=== PATIENT | male | born 1990 | race Caucasian/White ===

== ENCOUNTER 2023-11-04 17:27 | Inpatient (IN) | payer SELFPAY ==
[~2023-11-04] VITALS: Ht 172.7 cm; Wt 70.3 kg
[~2023-11-04 17:27] MED LIST: Thiamine 100 MG TAB PO SCH
[2023-11-04 18:16] LABS: HEMATOCRIT 33.9 % (42.0-52.0); HEMOGLOBIN 12.5 g/dl (13.5-18.0); MEAN CELL VOLUME 90 fl (80.0-100.0); MEAN CORPUSCULAR HEMOGLOBIN 33 pg (27-31); MEAN CORPUSCULAR HGB CONC 37 g/dl (33.0-37.0); MEAN PLATELET VOLUME 10.1 fl (7.4-10.4); PLATELET COUNT 145 K/mm3 (130-400); RED BLOOD COUNT 3.78 M/mm3 (4.20-5.60); REDCELL DISTRIBUTION WIDTH-CV 19.4 % (11.5-14.5)
[2023-11-04] MEDS ORDERED: NS 1,000 ML IV ONE (18:30)
[2023-11-04 18:35] LABS: ALANINE AMINOTRANSFERASE 191 U/L (0-55); ALBUMIN 2.1 g/dL (3.5-5.0); ALKALINE PHOSPHATASE 674 U/L (40-150); ANION GAP 20 mmol/L (7-16); AST,SGOT 1158 U/L (5-34); CALCIUM 8.1 mg/dL (8.4-10.2); CHLORIDE 92 mEq/L (98-107); CREATININE, serum 0.59 mg/dL (0.72-1.25); GLUCOSE 112 mg/dL (70-99); LIPASE 92 U/L (8-78); POTASSIUM 3.1 mEq/L (3.5-4.5); SODIUM 137 mEq/L (136-145); TOTAL PROTEIN 6.5 g/dl (6.2-8.1)
[2023-11-04 18:39] LABS: BLOOD UREA NITROGEN < 5 mg/dL (9-21)
[2023-11-04 18:53] LABS: BILIRUBIN,TOTAL 25.4 mg/dL (0.2-1.2)
[2023-11-04 18:58] LABS: BAND 2 % (0-10); BASOPHIL 1 % (0-2); EOSINOPHIL 1 % (0-4); LYMPHOCYTE 28 % (20.0-51.0); NEUTROPHILS 57 % (42.0-75.2)
[2023-11-04 19:00] LABS: TARGET CELLS 1+
[2023-11-04 19:09] LABS: COLLECTION METHOD CLEAN CATCH
[2023-11-04] MEDS ORDERED: Iohexol 300 - 100 ML VIAL IV ONE (19:09)
[2023-11-04] MEDS ORDERED: NS 50 ML IV SCH (19:09)
[2023-11-04 19:13] LABS: URINE APPEARANCE CLEAR (CLEAR/HAZY); URINE BLOOD NEGATIVE (NEGATIVE); URINE COLOR Dark Yellow (YELLOW); URINE GLUCOSE NEGATIVE (NEGATIVE); URINE KETONE NEGATIVE (NEGATIVE); URINE NITRATE NEGATIVE (NEGATIVE); URINE PROTEIN(semi-quant) NEGATIVE (NEGATIVE); URINE UROBILINOGEN 0.2 E.U/dL (0.2-1.0)
[2023-11-04 19:25] LABS: TRICYCLIC ANTIDEPRESS URINE NEGATIVE (NEGATIVE)
[2023-11-04 21:19] LABS: INR 1.7 (0.8-3.0); PROTHROMBIN TIME 18.1 SECONDS (9.7-12.8)
[2023-11-04] MEDS ORDERED: LORazepam 1 MG TAB PO PRN (21:30)
[2023-11-04] MEDS ORDERED: LORazepam 2 MG/ML 1 ML VIAL IV PRN (21:30)
[2023-11-04] MEDS ORDERED: Ondansetron 4 MG/2 ML VIAL IV PRN (21:30)
[2023-11-04] MEDS ORDERED: Polyethylene Glycol 3350 17 GM PDS PO PRN (21:30)
[2023-11-04] MEDS ORDERED: Mag/Al Hydrox/Simeth Susp 30 ML CUP PO PRN (21:30)
[2023-11-04 22:00] VITALS: BP 134/92; PULSE 102; TEMP 98.1
[2023-11-04 22:49] VITALS: BP_SYST 134
--- NOTE | 2023-11-04 22:51 | NUR ---
Patient arrived from ED around 2200, alert and oriented x4. denies chest pain and shortness of breath, nausea and headache. reports feeling anxious, slight tremors seen with arms extended, pt skin and sclera jaundice, scattered bruising on extremities noted. IV in SUE is patent, site is clean dry and intact. seizure and fall precautions in place, call light within reach. pt has no further needs, questions, or concerns at this time. will continue to monitor.
[2023-11-04 23:38] VITALS: BP 122/73; PULSE 112; TEMP 98.1
[2023-11-04 23:51] VITALS: BP_SYST 122
[2023-11-05] VITALS (21 sets, daily range): BP systolic 106–149; BP diastolic 72–101; PULSE 101–133; TEMP 97.5–99.5
[2023-11-05] MEDS ORDERED: Potassium Bicarbonate/Citrate 20 MEQ Effervescent TAB PO SCH (00:45)
[2023-11-05] MEDS ORDERED: NS 1,000 ML IV ONE (01:30)
[2023-11-05] MEDS ORDERED: hydrOXYzine HCl 25 MG TAB PO PRN (01:45)
[2023-11-05 06:43] LABS: MEAN CELL VOLUME 88 fl (80.0-100.0); MEAN CORPUSCULAR HGB CONC 37 g/dl (33.0-37.0); MEAN PLATELET VOLUME 9.7 fl (7.4-10.4); PLATELET COUNT 112 K/mm3 (130-400); RED BLOOD COUNT 3.11 M/mm3 (4.20-5.60); REDCELL DISTRIBUTION WIDTH-CV 19.1 % (11.5-14.5)
--- NOTE | 2023-11-05 06:50 | NUR ---
awake resting in bed, bedside shift report received from ROSALINDA Miranda
[2023-11-05 07:09] LABS: HEMATOCRIT 27.3 % (42.0-52.0); HEMOGLOBIN 10.2 g/dl (13.5-18.0); MEAN CORPUSCULAR HEMOGLOBIN 33 pg (27-31)
--- NOTE | 2023-11-05 07:52 | NUR ---
full assessment completed, see interventions for further info, will order breakfast and then take am meds, denies other needs
[2023-11-05] MEDS ORDERED: Multivitamin TAB PO SCH (08:00)
[2023-11-05 08:05] LABS: ANISOCYTOSIS 1+; BAND 8 % (0-10); EOSINOPHIL 1 % (0-4); LYMPHOCYTE 22 % (20.0-51.0); METAMYELOCYTE 1 % (0-0); NEUTROPHILS 64 % (42.0-75.2); PLATELET ESTIMATE DECREASED (NORMAL); TARGET CELLS 1+
[2023-11-05 08:53] LABS: ALANINE AMINOTRANSFERASE 158 U/L (0-55); ALBUMIN 1.8 g/dL (3.5-5.0); ALKALINE PHOSPHATASE 542 U/L (40-150); ANION GAP 18 mmol/L (7-16); AST,SGOT 936 U/L (5-34); BILIRUBIN,TOTAL 21.4 mg/dL (0.2-1.2); CALCIUM 7.3 mg/dL (8.4-10.2); CHLORIDE 97 mEq/L (98-107); CREATININE, serum 0.55 mg/dL (0.72-1.25); GLUCOSE 138 mg/dL (70-99); POTASSIUM 3.3 mEq/L (3.5-4.5); SODIUM 137 mEq/L (136-145); TOTAL PROTEIN 5.5 g/dl (6.2-8.1)
[2023-11-05 08:54] LABS: BLOOD UREA NITROGEN < 5 mg/dL (9-21)
[2023-11-05] MEDS ORDERED: Folic Acid 1 MG TAB PO SCH (09:00)
[2023-11-05] MEDS ORDERED: Citalopram 20 MG TAB PO SCH (09:00)
[2023-11-05] MEDS ORDERED: diazePAM 10 MG TAB PO SCH ×2 (09:00→18:00)
--- NOTE | 2023-11-05 09:45 | NUR ---
resting in bed with lights off, has had breakfast and tolerated well, c/o shaking and requesting something to help with this, given scheduled valium and CIWA will be completed soon also, denies pain or nausea
--- NOTE | 2023-11-05 11:17 | NUR ---
Dr Mohamud and care team in to see patient, mother at bedsider, Dr Mohamud talked frankly with patient and his mother about his condition, Brianda with social media marketing manager also talking with patient
[2023-11-05] MEDS ORDERED: NS & 20 mEq KCl 1,000 ML IV SCH (11:30)
--- NOTE | 2023-11-05 12:15 | NUR ---
IV fluids started per order, asked patient if he would like to see someone from Alcoholics Anonymous, will notify this nurse if he does
--- NOTE | 2023-11-05 12:28 | NUR ---
Gasoline Attendant attended rounds with the clinical team. Hospitalist had a conversation with patient about his prognosis and his alcohol use. After rounds, SW met with patient and his mother, Sejal (ph#[phone]) to discuss discharge planning. Patient lives in [place] with a roommate, Augustine. Patient's mother, Sejal advised she would like to see patient return home with her at time of discharge and patient did not state either way what he thought of this. SW asked patient if Augustine drinks and he stated yes, but not anything excessive. SW encouraged patient that he may want to consider staying with his mother as an option in an attempt to avoid exposure to alcohol if he would like to stop drinking. Patient does not have a primary care provider and stated the only healthcare provider he has seen in the last few years was to be checked for STDs. Patient does not use any DME and is normally independent with ADLS. Patient was employed at [employer] however was fired last week. Patient does not have insurance coverage at this time. SW provided patient with resources for drug/alcohol services, AA meetings, and mental health services. SW reviewed these with patient and encouraged him to contact [facility] to schedule an assessment if he is interested in any services or treatment. SW explained to patient that he could even call today from the hospital. Discharge Plan: Home, possibly with mother Sejal
--- NOTE | 2023-11-05 13:59 | NUR ---
reqeuested to get up to bathroom for bowel movement, was too unsteady and shakey and so assisted with 2 up to bedside commode, had large semi formed stool, then assisted back to bed, CIWA score 12 and medicated with ataivan 2mg slow IV,
--- NOTE | 2023-11-05 15:02 | NUR ---
appears to be dozing, states is feeling less shakey and anxious at this time, mother and friend at bedside
--- NOTE | 2023-11-05 16:21 | NUR ---
CIWA score 5, medicated with ativan 1mg po, mother and brother at bedside
--- NOTE | 2023-11-05 18:15 | NUR ---
live truck technician called stating his HR was in the 150s, entered the room and a male visitor was asssiting him into the bathroom, I immediately took over and had patient sit down on bedside commode, called for TUBE DRAWING SUPERVISOR, he was able to stand with assist and voided small amount dark ashley bili yellow urine, placed in WC and assisted back to bed, medicated with scheduled valium and ativan 1mg PO for CIWA score 6, mom remains at bedside, will order something to eat
--- NOTE | 2023-11-05 18:59 | NUR ---
bedside shift report given to ROSALINDA Miranda
[2023-11-06] VITALS (17 sets, daily range): BP systolic 115–140; BP diastolic 78–91; PULSE 76–113; TEMP 97.8–99.6
--- NOTE | 2023-11-06 02:56 | NUR ---
patient lying in bed, alert and oriented x4. denies chest pain and shortness of breath. reports pain in bilateral feet, repositioned. IV in LAC is patent, site is clean dry and intact. Bruising noted on ankles, and small scattered bruising on extremities. scabs in scalp, pt is picking and has some small bleeding from opened scabs noted. pt reports feeling anxious and has visible tremors, scored and given ativan per protocol. 0200- pt off phone with mother and reported wanting to get ready to go home, pt educated on risk of going home being sizzures and possibly , pt verbally understood. this RN spoke with pt mother about her earlier call with pt and care plan going forward with managing anxiety and withdrawl symptoms, pt family verbally understood and has no further questions or concerns at this time. pt given ativan and scheduled valium. pt has no further needs, questions or concerns at this time. fall precautions in place, call light within reach. will continue to monitor.
[2023-11-06 07:30] LABS: INR 2.2 (0.8-3.0); PROTHROMBIN TIME 23.1 SECONDS (9.7-12.8)
[2023-11-06 07:32] LABS: ALANINE AMINOTRANSFERASE 144 U/L (0-55); ALBUMIN 1.9 g/dL (3.5-5.0); ALKALINE PHOSPHATASE 524 U/L (40-150); ANION GAP 12 mmol/L (7-16); AST,SGOT 805 U/L (5-34); CALCIUM 7.6 mg/dL (8.4-10.2); CHLORIDE 98 mEq/L (98-107); CREATININE, serum 0.52 mg/dL (0.72-1.25); GLUCOSE 86 mg/dL (70-99); POTASSIUM 3.1 mEq/L (3.5-4.5); SODIUM 135 mEq/L (136-145); TOTAL PROTEIN 5.2 g/dl (6.2-8.1)
[2023-11-06 07:55] LABS: BLOOD UREA NITROGEN < 5 mg/dL (9-21)
[2023-11-06 07:56] LABS: BILIRUBIN,DIRECT 20.1 mg/dL (0.0-0.5); BILIRUBIN,TOTAL 25.3 mg/dL (0.2-1.2)
[2023-11-06 09:50] LABS: MEAN CELL VOLUME 91 fl (80.0-100.0); MEAN CORPUSCULAR HGB CONC 37 g/dl (33.0-37.0); MEAN PLATELET VOLUME 10.7 fl (7.4-10.4); PLATELET COUNT 108 K/mm3 (130-400); RED BLOOD COUNT 2.84 M/mm3 (4.20-5.60); REDCELL DISTRIBUTION WIDTH-CV 19.7 % (11.5-14.5)
[2023-11-06 09:54] LABS: HEMATOCRIT 25.7 % (42.0-52.0); HEMOGLOBIN 9.4 g/dl (13.5-18.0); MEAN CORPUSCULAR HEMOGLOBIN 33 pg (27-31)
[2023-11-06 10:23] LABS: BAND 6 % (0-10); LYMPHOCYTE 11 % (20.0-51.0); NEUTROPHILS 81 % (42.0-75.2); PLATELET ESTIMATE DECREASED (NORMAL)
[2023-11-06] MEDS ORDERED: Potassium Bicarbonate/Citrate 20 MEQ Effervescent TAB PO SCH (11:45)
[2023-11-06] MEDS ORDERED: Magnesium Sulfate 2 GM/50 ML IV SOLN IV ONE (11:45)
[2023-11-06] MEDS ORDERED: *Potassium Replacement Protocol MC SCH (11:45)
[2023-11-06] MEDS ORDERED: Lactulose Oral Soln 10 GM/15 ML CUP PO SCH (12:00)
[2023-11-06 12:59] LABS: ARTERIAL BLD GAS O2 SATURATION 94.6 % (92-100); ARTERIAL BLD GAS TCO2 CT 27.1; ARTERIAL BLOOD GAS BASE EXCESS 3.7 (-2-2); ARTERIAL BLOOD GAS HCO3 26.1 meq/L (22-26); ARTERIAL BLOOD GAS PCO2 31.9 mmHg (35-45); ARTERIAL BLOOD GAS PO2 70.6 mmHg (80-100); ARTERIAL BLOOD GAS pH 7.53 (7.35-7.45)
[2023-11-06] MEDS ORDERED: prednisoLONE Sod Phos 15 MG/5 ML UD Oral Soln PO SCH (17:30)
--- NOTE | 2023-11-06 19:10 | NUR ---
PATIENT RESTING IN BED WITH EYES CLOSED WITH TV ON WITH NO FAMILY PRESENT WITH NO ACUTE DISTRESS NOTED. PATIENT EASILY AROUSED. PATIENT ON ROOM AIR. NS WITH 20 OF KCL INFUSING INTO LEFT AC WITH NO COMPLICATIONS NOTED. TELEMETRY INTACT. PATIENT DENIES ANY NEEDS AT THIS TIME. PATIENT CARE ASSUMED FROM [facility]. BED IN LOW POSITION WITH WHEELS LOCKED WITH RAILS UP X3 AND CALL LIGHT WITHIN REACH. SEIZURE PRECAUTIONS IN PLACE. BED ALARM ON.
--- NOTE | 2023-11-06 22:40 | NUR ---
PATIENT RESTING WITH EYES CLOSED IN BED WITH TV ON WITH NO FAMILY PRESENT WTIH NO ACUTE DISTRESS NOTED. PATIENT EASILY AROUSED. PATIENT ON ROOM AIR. NS WITH 20 KCL INFUSING INTO LEFT UPPER AC WITH NO COMPLICATIONS NOTED. TELEMETRY INTACT. ASSESSMENT AND MEDICATION ADMINISTRATION COMPLETED AT THIS TIME. PATIENT TOLERATED WELL. ALL NEEDS MET. CONDOM CATH DRAINING CLEAR DARK YELLOW URINE. BED IN LOW POSITION WITH WHEELS LOCKED WITH RAILS UP X3 AND CALL LIGHT WITHIN REACH. SEIZURE PRECAUTIONS IN PLACE. BED ALARM ON.
[2023-11-07] VITALS (20 sets, daily range): BP systolic 106–120; BP diastolic 72–86; PULSE 77–115; TEMP 97.5–98.7
--- NOTE | 2023-11-07 08:00 | NUR ---
PATIENT RESTING IN BED UPON ENTERING ROOM. SHIFT ASSESSMENT COMPLETED. PATIENT IS SCORING AN 11 ON CIWA. HE IS ORIENTED TO SELF ONLY. PATIENT REPORTS TO THIS RN THAT HE HAD FALLEN IN THE BATHROOM 45 MINUTES AGO. THIS RN WAS IN THE ROOM 30 MINUTES AGO FOR BEDSIDE REPORT AND PATIENT WAS IN BED AT THAT TIME WITH BED ALARMS IN PLACE. SPEECH IS SLURRED AND PATIENT IS DROWSY. IVF INFUSING. DENIES ANY NEEDS AT THIS TIME. CALL LIGHT WITHIN REACH, WILL CONTINUE TO MONITOR.
[2023-11-07 08:01] LABS: MEAN CELL VOLUME 92 fl (80.0-100.0); MEAN CORPUSCULAR HGB CONC 36 g/dl (33.0-37.0); MEAN PLATELET VOLUME 10.4 fl (7.4-10.4); PLATELET COUNT 139 K/mm3 (130-400); RED BLOOD COUNT 2.93 M/mm3 (4.20-5.60); REDCELL DISTRIBUTION WIDTH-CV 20.5 % (11.5-14.5)
[2023-11-07 08:06] LABS: HEMATOCRIT 26.9 % (42.0-52.0); HEMOGLOBIN 9.8 g/dl (13.5-18.0); MEAN CORPUSCULAR HEMOGLOBIN 33 pg (27-31)
[2023-11-07 08:27] LABS: INR 2.7 (0.8-3.0); PROTHROMBIN TIME 28.3 SECONDS (9.7-12.8)
[2023-11-07 09:21] LABS: ALANINE AMINOTRANSFERASE 131 U/L (0-55); ALBUMIN 1.8 g/dL (3.5-5.0); ALKALINE PHOSPHATASE 519 U/L (40-150); ANION GAP 10 mmol/L (7-16); AST,SGOT 664 U/L (5-34); CALCIUM 7.3 mg/dL (8.4-10.2); CHLORIDE 106 mEq/L (98-107); CREATININE, serum 0.55 mg/dL (0.72-1.25); GLUCOSE 96 mg/dL (70-99); POTASSIUM 3.9 mEq/L (3.5-4.5); SODIUM 139 mEq/L (136-145); TOTAL PROTEIN 4.9 g/dl (6.2-8.1)
[2023-11-07 09:25] LABS: BILIRUBIN,TOTAL 27.7 mg/dL (0.2-1.2); BLOOD UREA NITROGEN < 5 mg/dL (9-21)
--- NOTE | 2023-11-07 09:33 | NUR ---
SHIFT ASSESSMENT COMPLETED. MORNING MEDICATIONS ADMINISTERED. BED ALARMS IN PLACE, CALL LIGHT WITHIN REACH. PATIENT HAS AN EXTERNAL HERNANDEZ THAT IS WORKING WELL. DENIES ANY NEED AT THIS TIME. WILL CONTINUE TO MONITOR.
[2023-11-07 09:53] LABS: BAND 3 % (0-10); NEUTROPHILS 79 % (42.0-75.2)
[2023-11-07 09:54] LABS: ANISOCYTOSIS 1+; HYPOCHROMIA 1+; LYMPHOCYTE 14 % (20.0-51.0); PLATELET ESTIMATE NORMAL (NORMAL); TARGET CELLS 1+
--- NOTE | 2023-11-07 10:30 | NUR ---
Several visit attempts: Airplane Patrol Pilot spoke with patient's mom, letting her know Spiritual [facility] is available to Eron and to his family as well. She thanked Airplane Patrol Pilot. A Nurse was with Eron at the time.
[2023-11-07] MEDS ORDERED: Potassium Bicarbonate/Citrate 20 MEQ Effervescent TAB PO ONE (12:00)
[2023-11-07] MEDS ORDERED: Lactulose Oral Soln 10 GM/15 ML CUP PO SCH (13:00)
--- NOTE | 2023-11-07 15:43 | NUR ---
Fabricating Machine Operator spoke with Hospitalist team about ordering PT/OT.
[2023-11-07] MEDS ORDERED: diazePAM 10 MG TAB PO SCH (18:00)
[2023-11-07 20:19] LABS: IRON,SERUM 113 ug/dL (50-175)
[2023-11-08] VITALS (18 sets, daily range): BP systolic 109–122; BP diastolic 68–87; PULSE 71–89; TEMP 97.2–98.8
--- NOTE | 2023-11-08 05:15 | NUR ---
ASSESSMENT COMPLETE FOR CLINICIAN ONCOLOGY. PT HAD A PRETTY ROUGH NIGHT. PT'S CIWA SCORES RANGED FOR 7 TO 23. PT INCONTINENT MOST OF SHIFT NEEDED SEVERAL BED CHANGES. WILL CONTINUE TO MONITOR. FALL PRECAUTIONS IN PLACE. BED ALARM ON. CALL LIGHT WITHIN REACH.
[2023-11-08 06:53] LABS: MEAN CELL VOLUME 95 fl (80.0-100.0); MEAN CORPUSCULAR HGB CONC 36 g/dl (33.0-37.0); MEAN PLATELET VOLUME 10.5 fl (7.4-10.4); PLATELET COUNT 201 K/mm3 (130-400); RED BLOOD COUNT 2.81 M/mm3 (4.20-5.60); REDCELL DISTRIBUTION WIDTH-CV 21.3 % (11.5-14.5)
[2023-11-08 06:59] LABS: INR 2.4 (0.8-3.0); PROTHROMBIN TIME 25.3 SECONDS (9.7-12.8)
[2023-11-08 07:12] LABS: HEMATOCRIT 26.6 % (42.0-52.0); HEMOGLOBIN 9.5 g/dl (13.5-18.0); MEAN CORPUSCULAR HEMOGLOBIN 34 pg (27-31)
[2023-11-08 07:19] LABS: ALANINE AMINOTRANSFERASE 121 U/L (0-55); ALBUMIN 1.8 g/dL (3.5-5.0); ALKALINE PHOSPHATASE 502 U/L (40-150); ANION GAP 9 mmol/L (7-16); AST,SGOT 525 U/L (5-34); CHLORIDE 109 mEq/L (98-107); CREATININE, serum 0.54 mg/dL (0.72-1.25); GLUCOSE 79 mg/dL (70-99); MAGNESIUM 2.1 mg/dL (1.6-2.6); POTASSIUM 3.4 mEq/L (3.5-4.5); SODIUM 141 mEq/L (136-145); TOTAL PROTEIN 5.8 g/dl (6.2-8.1)
[2023-11-08 07:21] LABS: BILIRUBIN,TOTAL 29.4 mg/dL (0.2-1.2); BLOOD UREA NITROGEN < 5 mg/dL (9-21)
[2023-11-08] MEDS ORDERED: Potassium Chloride 100 ML IV SCH (08:00)
[2023-11-08 08:43] LABS: ANISOCYTOSIS 2+; LYMPHOCYTE 20 % (20.0-51.0); NEUTROPHILS 74 % (42.0-75.2); PLATELET ESTIMATE NORMAL (NORMAL)
[2023-11-08 08:44] LABS: TARGET CELLS 1+
--- NOTE | 2023-11-08 09:15 | NUR ---
Patient provided with full bed change, incontinent of urine and stool. Pericares provided with fresh linens. Patient alert, able to assist by rolling in bed with instruction. Patient took po medication with encouragement, but was agreeable. Breakfast ordered. Patient very jaundiced in color. High fall risk followed.
--- NOTE | 2023-11-08 10:25 | NUR ---
FridaN WORKING WITH THERAPY
--- NOTE | 2023-11-08 11:45 | NUR ---
Patient sleeping soundly with mother at bedside.
--- NOTE | 2023-11-08 14:22 | NUR ---
Full bed change and clean linens and pericare provided for incontinence. Patient offered food and drink without interest. He denies pain. He requested light be turned off and blinds closed. High fall risk followed. Will monitor
--- NOTE | 2023-11-08 14:55 | NUR ---
Patient resting in bed. Again incontinent of urine. Pericares provided. He was able to drink and few sips of tea, but no interest in lunch. Will monitor
--- NOTE | 2023-11-08 18:58 | NUR ---
Incontinence cares provided. Patients mom at bedside, she brought in food for patient. He has minimal interest in the food. Vss. He has rested well most of the day. Awakening with incontinece. Ivf As ordered. Will report off to night nurse
[2023-11-09] VITALS (14 sets, daily range): BP systolic 15–137; BP diastolic 70–84; PULSE 66–99; TEMP 97.3–98.4
[2023-11-09 06:58] LABS: MEAN CELL VOLUME 96 fl (80.0-100.0); MEAN CORPUSCULAR HGB CONC 35 g/dl (33.0-37.0); MEAN PLATELET VOLUME 10.2 fl (7.4-10.4); PLATELET COUNT 188 K/mm3 (130-400); RED BLOOD COUNT 2.62 M/mm3 (4.20-5.60); REDCELL DISTRIBUTION WIDTH-CV 21.8 % (11.5-14.5)
[2023-11-09 07:21] LABS: HEMATOCRIT 25.2 % (42.0-52.0); HEMOGLOBIN 8.9 g/dl (13.5-18.0); MEAN CORPUSCULAR HEMOGLOBIN 34 pg (27-31)
--- NOTE | 2023-11-09 08:00 | NUR ---
PAtient resting in bed, awakened with touch. Alert, but eyes kept closed. VSS. IV CDI, fluids infusing. Siezure/ETOH precautions in place. Incontinent of urine and BM. Nursing staff assisted with getting cleaned and repositioned. Call light within reach. Bed alarm on
[2023-11-09] MEDS ORDERED: diazePAM 10 MG TAB PO SCH (09:00)
[2023-11-09 09:11] LABS: ALBUMIN 1.6 g/dL (3.5-5.0); CALCIUM 7.9 mg/dL (8.4-10.2); CREATININE, serum 0.47 mg/dL (0.72-1.25); MAGNESIUM 2.1 mg/dL (1.6-2.6); POTASSIUM 3.6 mEq/L (3.5-4.5); TOTAL PROTEIN 5.2 g/dl (6.2-8.1)
[2023-11-09 09:13] LABS: BILIRUBIN,TOTAL 28.9 mg/dL (0.2-1.2)
[2023-11-09] MEDS ORDERED: Potassium Chloride 100 ML IV SCH (09:30)
[2023-11-09 09:49] LABS: BAND 2 % (0-10); BASOPHIL 1 % (0-2); LYMPHOCYTE 13 % (20.0-51.0); METAMYELOCYTE 1 % (0-0); NEUTROPHILS 68 % (42.0-75.2); PLATELET ESTIMATE NORMAL (NORMAL)
[2023-11-09 09:50] LABS: ANISOCYTOSIS 2+; TARGET CELLS 1+
--- NOTE | 2023-11-09 10:55 | NUR ---
SW called by a staff member of the rehad department stating patient would need IPR or out patient rehab, but is uninsured at this time. Email was sent to finance department to contac patient and mother to discuss finances. ADRI will continue to follow.
[2023-11-09 12:52] LABS: COLLECTION METHOD CLEAN CATCH
[2023-11-09 13:01] LABS: PH 7.5 (5.0-8.5); URINE APPEARANCE CLEAR (CLEAR/HAZY); URINE BLOOD NEGATIVE (NEGATIVE); URINE COLOR Dark Yellow (YELLOW); URINE GLUCOSE NEGATIVE (NEGATIVE); URINE KETONE NEGATIVE (NEGATIVE); URINE NITRATE NEGATIVE (NEGATIVE); URINE PROTEIN(semi-quant) NEGATIVE (NEGATIVE); URINE UROBILINOGEN 0.2 E.U/dL (0.2-1.0)
[2023-11-10] VITALS (20 sets, daily range): BP systolic 101–122; BP diastolic 68–85; PULSE 77–97; TEMP 97.4–98.8
[2023-11-10 06:44] LABS: MEAN CELL VOLUME 100 fl (80.0-100.0); MEAN CORPUSCULAR HGB CONC 34 g/dl (33.0-37.0); MEAN PLATELET VOLUME 10.2 fl (7.4-10.4); PLATELET COUNT 247 K/mm3 (130-400); RED BLOOD COUNT 2.71 M/mm3 (4.20-5.60); REDCELL DISTRIBUTION WIDTH-CV 22.6 % (11.5-14.5)
[2023-11-10 06:47] LABS: HEMATOCRIT 27.1 % (42.0-52.0); HEMOGLOBIN 9.3 g/dl (13.5-18.0); MEAN CORPUSCULAR HEMOGLOBIN 34 pg (27-31)
[2023-11-10 07:04] LABS: ALBUMIN 1.8 g/dL (3.5-5.0); BILIRUBIN,TOTAL 32.2 mg/dL (0.2-1.2); CALCIUM 7.9 mg/dL (8.4-10.2); CREATININE, serum 0.59 mg/dL (0.72-1.25); POTASSIUM 3.5 mEq/L (3.5-4.5); TOTAL PROTEIN 4.9 g/dl (6.2-8.1)
[2023-11-10 07:11] LABS: INR 1.8 (0.8-3.0); PROTHROMBIN TIME 19.7 SECONDS (9.7-12.8)
--- NOTE | 2023-11-10 07:35 | NUR ---
awake resting in bed, bedside shift report received from ROSALINDA Begum, is alert but very hard to understand when he tries to talk
[2023-11-10 07:54] LABS: ANISOCYTOSIS 1+; BAND 3 % (0-10); LYMPHOCYTE 15 % (20.0-51.0); MYELOCYTE 3 % (0-0); NEUTROPHILS 75 % (42.0-75.2); NUCLEATED RED BLOOD CELL 1 (0-6); PLATELET ESTIMATE NORMAL (NORMAL); TARGET CELLS 1+
[2023-11-10 07:55] LABS: POLYCHROMASIA 4+
--- NOTE | 2023-11-10 08:10 | NUR ---
he is in bed with eyes closed, aroused and am meds given, he takes them slowly but is able to swallow without difficulty, his speech is very quiet and slow and he is hard to understand, encouraged to speak loudly and clearly and then it is better, he is oriented to self and place, unsure of date, full assessment completed, see interventions for further info, has large bruising area to left side of chest and hip, rolled to right side and placed pillow behind his back and encouraged him to lay on right side for a bit, verbalizes understanding
[2023-11-10] MEDS ORDERED: Potassium Bicarbonate/Citrate 20 MEQ Effervescent TAB PO SCH (08:30)
--- NOTE | 2023-11-10 09:30 | NUR ---
physical therapy in and assisted him out of bed and into recliner
--- NOTE | 2023-11-10 10:15 | NUR ---
remains up in chair, he is weak and remains hard to understand, hold a mandarin orange and assisted him with peeling this and will check to see if he eats this
--- NOTE | 2023-11-10 11:00 | NUR ---
asking to get up and have bowel movement and void, with 2 max assisted up to bedside commode, did void but did not have a bowel movement, am hygiene completed, then assisted back to chair with chair alarm on, he remains very weak and only assists minimally with transfer
--- NOTE | 2023-11-10 12:32 | NUR ---
social welfare clerk in to talk with mom and the patient, mom is very tearful but denies needs
--- NOTE | 2023-11-10 13:35 | NUR ---
Dr Meyer and Dr Cook in to talk with mom and patient
--- NOTE | 2023-11-10 14:37 | NUR ---
nurse states she and another dam tender assistant assted him up to bedside commode and he had a very small loose bowel movrment
--- NOTE | 2023-11-10 14:41 | NUR ---
sand worker met with patient and his mother, along with Sarah social work job titles. Worker confirmed with patient's mother that patient was residing with her "ex" and that patient's belongings have been moved to mother's home and that the discharge plan is to go to mother's apartment. Worker discussed utilization of ambulance for assistance getting into apartment as it is on the 3rd floor and does not have an elevator. Patient asked if he could "take a vacation and then come back". Worker advised that this was not possible. Worker contacted financial counselor and requested that she meet with mother today.
--- NOTE | 2023-11-10 15:13 | NUR ---
SW met with patient and mother to provide another copy of community resources and drug/alcohol resources. Patient completed DPOA document naming his mother as DPOA and his brother Jorge ([phone]) as alternate. Copy placed on chart and original and copies provided to mother/patient. Discharge plan: TBD
--- NOTE | 2023-11-10 16:00 | NUR ---
was up to bedside commode, and voided large amount and had large liquid stool, then assisted back to bed, mom and brother at bedside
--- NOTE | 2023-11-10 17:00 | NUR ---
resting in bed with mom and brother at bedside, encouraged him to try and eawt
--- NOTE | 2023-11-10 18:27 | NUR ---
appears to be sleeping and doesn't arouse to eat supper, mother and brother are leaving at this time
--- NOTE | 2023-11-10 18:47 | NUR ---
bedside shift report given to ROSALINDA Crawford
[2023-11-11] VITALS (18 sets, daily range): BP systolic 107–118; BP diastolic 69–84; PULSE 80–94; TEMP 97.7–98.9
[2023-11-11 03:39] LABS: CERULOPLASMIN 43 mg/dL (20-60)
[2023-11-11 07:50] LABS: MEAN CELL VOLUME 103 fl (80.0-100.0); MEAN CORPUSCULAR HGB CONC 33 g/dl (33.0-37.0); MEAN PLATELET VOLUME 10.3 fl (7.4-10.4); PLATELET COUNT 256 K/mm3 (130-400); RED BLOOD COUNT 2.69 M/mm3 (4.20-5.60); REDCELL DISTRIBUTION WIDTH-CV 23.3 % (11.5-14.5)
[2023-11-11 07:56] LABS: HEMATOCRIT 27.6 % (42.0-52.0); HEMOGLOBIN 9.2 g/dl (13.5-18.0); MEAN CORPUSCULAR HEMOGLOBIN 34 pg (27-31)
[2023-11-11 08:07] LABS: INR 1.6 (0.8-3.0); PROTHROMBIN TIME 17.6 SECONDS (9.7-12.8)
[2023-11-11 08:11] LABS: ALBUMIN 1.8 g/dL (3.5-5.0); CALCIUM 7.8 mg/dL (8.4-10.2); CREATININE, serum 0.64 mg/dL (0.72-1.25); POTASSIUM 3.3 mEq/L (3.5-4.5); TOTAL PROTEIN 4.9 g/dl (6.2-8.1)
[2023-11-11 08:14] LABS: BILIRUBIN,TOTAL 34.1 mg/dL (0.2-1.2)
[2023-11-11] MEDS ORDERED: Potassium Bicarbonate/Citrate 20 MEQ Effervescent TAB PO SCH (08:30)
[2023-11-11 09:10] LABS: BAND 7 % (0-10); EOSINOPHIL 2 % (0-4); LYMPHOCYTE 12 % (20.0-51.0); NEUTROPHILS 77 % (42.0-75.2)
[2023-11-11 09:11] LABS: PLATELET ESTIMATE NORMAL (NORMAL)
--- NOTE | 2023-11-11 09:50 | NUR ---
PATIENT ALERT AND ORIENTD X3. SHIFT ASSESSMENT COMPLETED. PATIENT REPORTS PAIN ON LEFT HIP AND WITH MOVING/ TURINING PATIENT IN BED DO INCONTINENCE CARE.PATIENT WEARING A COMDOM CATHETER. PATIENT SKIN COLOR IS JAUNDICE ALL OVER. PATIENT EATS VERY MINIMAL AND WHEN THIS NURSE TRIED TO HELP WITH FEEDING PATIENT REFUSED.PATIENT ON ROOM AIR, SOME TREMORS PRESENT. CALL LIGHT WITHIN REACH. BED AT LOWEST POSIITON. BED ALARM ON.
[2023-11-11 10:13] LABS: EBV NUCLEAR ANTIGEN IGG Positive (Negative)
[2023-11-11 10:16] LABS: EBV IGM AB Negative (Negative)
[2023-11-11 10:20] LABS: EBV EARLY ANTIGEN IGG Positive (Negative)
[2023-11-11 11:11] LABS: IMMUNO G SUBCLASS 1 592.6 mg/dL (()); IMMUNO G SUBCLASS 2 359.7 mg/dL (()); IMMUNO G SUBCLASS 3 64.2 mg/dL (())
[2023-11-11] MEDS ORDERED: rifAXIMin 550 MG TAB PO SCH (12:00)
[2023-11-11 14:32] LABS: HERPES SIMPLEX 2 VIRUS IGM IFA <1:10 (<1:10)
--- NOTE | 2023-11-11 15:47 | NUR ---
ADRI met with patient's mother, Dr. Meyer and Dr. Cook to discuss patient's status. Patient sleeping peacefully in bed. Physicians explained medical status of patient and explained that patient is not accepted to for evaluation of liver transplant. Mother questioned if patient is terminal and asked how long patient has. ADRI met with mother after physicians left room, along with ADRI Lamar, to discuss discharge planning. Mother lives on 3rd floor apartment with her other son Jorge. Discussed patient not having insurance or PCP to qualify him for services. Discussed mother's support being only her son Jorge in the home and no other family available to assist with patient. Mom works in billing at a medical office locally. Discussed possibility of [facility] and discussed sending referral to [facility]. Mother agreeable. Discussed services and support that hospice can provide. Referral sent via secure email. ADRI left message for Elina with [facility] to return call to verify patient not qualifying for medicaid. Discharge plan: TBD
--- NOTE | 2023-11-11 19:20 | NUR ---
PATIENT RESTING IN BED WITH MOTHER AND BROTHER AT BEDSIDE WITH NO ACUTE DISTRESS NOTED. PATIENT ON ROOM AIR. NS WITH 20 KCL INFUSING INTO LEFT FOREARM WITH NO COMPLICATIONS NOTED. TELEMETRY INTACT. PATIENT DENIES ANY NEEDS AT THIS TIME. PATIENT CARE ASSUMED FROM [facility]. BED IN LOW POSITION WITH WHEELS LOCKED WITH RAILS UP X3 AND CALL LIGHT WITHIN REACH. SEIZURE PRECAUTIONS IN PLACE AND BED ALARM ON.
--- NOTE | 2023-11-11 21:05 | NUR ---
PATIENT RESTING IN BED WITH EYES CLOSED WITH TV OFF WITH NO FAMILY PRESENT WITH NO ACUTE DISTRSS NOTED. PATIENT ON ROOM AIR. PATIENT EASILY AROUSED. NS WITH 20 KCL INFUSING INTO LEFT FOREARM WITH NO COMPLICATIONS NOTED. TELEMETRY INTACT. CONDOM CATH INTACT, PATENT, AND DRAINING ROQUE CLOUDY URINE. ASSESSMENT AND MEDICATION ADMINISTRATION COMPLETED AT THIS TIME. PATIENT TOLERATED WELL. ALL NEEDS MET. BED IN LOW POSITION WITH WHEELS LOCKED WITH RAILS UP X3 AND CALL LIGHT WITHIN REACH. SEIZURE PRECAUTIONS IN PLACE. BED ALARM ON .
[2023-11-12 00:05] VITALS: BP_SYST 111
[2023-11-12 02:00] VITALS: BP 121/77; PULSE 86; TEMP 98.4
[2023-11-12 04:00] VITALS: BP 115/76; PULSE 86; TEMP 97.7
[2023-11-12 04:05] VITALS: BP_SYST 115
[2023-11-12 06:00] VITALS: BP_SYST 146
[2023-11-12 06:32] VITALS: BP 146/77; PULSE 90; TEMP 98.4
[2023-11-12 06:39] LABS: INR 1.6 (0.8-3.0); PROTHROMBIN TIME 17.5 SECONDS (9.7-12.8)
[2023-11-12 06:53] LABS: MEAN CELL VOLUME 101 fl (80.0-100.0); MEAN CORPUSCULAR HGB CONC 34 g/dl (33.0-37.0); MEAN PLATELET VOLUME 10.1 fl (7.4-10.4); PLATELET COUNT 240 K/mm3 (130-400); RED BLOOD COUNT 2.66 M/mm3 (4.20-5.60); REDCELL DISTRIBUTION WIDTH-CV 22.9 % (11.5-14.5)
[2023-11-12 07:04] LABS: ALBUMIN 1.6 g/dL (3.5-5.0); CREATININE, serum 0.71 mg/dL (0.72-1.25); POTASSIUM 3.1 mEq/L (3.5-4.5); TOTAL PROTEIN 5.1 g/dl (6.2-8.1)
[2023-11-12 07:24] LABS: BILIRUBIN,TOTAL 33.6 mg/dL (0.2-1.2)
[2023-11-12 09:18] LABS: HEMATOCRIT 26.9 % (42.0-52.0); HEMOGLOBIN 9.1 g/dl (13.5-18.0); MEAN CORPUSCULAR HEMOGLOBIN 34 pg (27-31)
[2023-11-12 09:55] LABS: BAND 2 % (0-10); LYMPHOCYTE 11 % (20.0-51.0); METAMYELOCYTE 2 % (0-0); NEUTROPHILS 78 % (42.0-75.2)
[2023-11-12 09:56] LABS: ANISOCYTOSIS 3+; NUCLEATED RED BLOOD CELL 1 (0-6); PLATELET ESTIMATE NORMAL (NORMAL); TARGET CELLS 1+
[2023-11-12] MEDS ORDERED: Lactulose Oral Soln 10 GM/15 ML CUP PO SCH (14:00)
[2023-11-12] MEDS ORDERED: Lidocaine 4% Topical Patch TP ONE ×2 (14:20→22:25)
[2023-11-12 15:12] LABS: CYTOMEGALOVIRUS DNA PCR Negative (Negative)
[2023-11-13 08:00] VITALS: BP 107/71; PULSE 92; TEMP 98.1
[2023-11-13 08:30] VITALS: BP_SYST 107
[2023-11-13] MEDS ORDERED: Morphine Oral Concentrate 20 MG/ML UD SL PRN (11:45)
[2023-11-13] MEDS ORDERED: LORazepam 2 MG/ML 1 ML VIAL IV PRN (11:45)
[2023-11-13] MEDS ORDERED: Haloperidol Lactate 5 MG/ML VIAL IV PRN (11:45)
[2023-11-13] MEDS ORDERED: Morphine 4 MG/ML VIAL IV PRN (11:45)
[2023-11-13] MEDS ORDERED: Ondansetron 4 MG/2 ML VIAL IV PRN ×2 (11:45→17:00)
--- NOTE | 2023-11-13 16:12 | NUR ---
Button And Buckle Maker contacted Elina Financial Counselor who advised patient is Medicaid pending and application has been submitted. SW requested a copy be sent to [facility]. SW attended clinical rounds and patient is upset with discharge plan. Patient also expressed frustration and anger with his mother, Sejal when she would engage in discussion with SW and Hospitalist. Per Hospitalist, patient does not have decision making capacity at this time. Patient stated he feels like this hospital is a "fucking [facility]" and that he could just crawl around at home. SW attempted to provide reason behind why discharge home is not a safe option, however patient adamantly disagrees. ADRI coordinated with Isabel at [facility] who advised they can accept tomorrow and requested transport time for 1030. Isabel has talked with the family about admission tomorrow. ADRI followed up with patient and his parents, Sejal and Jack who are at bedside. Jack, patient's father lives in [place] and just arrived. Patient's family updated and in agreement with discharge plan for [facility] tomorrow.
[2023-11-13 16:58] VITALS: BP_SYST 107
[2023-11-13] MEDS ORDERED: Polyethylene Glycol 3350 17 GM PDS PO PRN (17:00)
[2023-11-13] MEDS ORDERED: NS & 20 mEq KCl 1,000 ML IV SCH (17:00)
[2023-11-13] MEDS ORDERED: Mag/Al Hydrox/Simeth Susp 30 ML CUP PO PRN (17:00)
--- NOTE | 2023-11-13 18:42 | NUR ---
Report called to ROSALINDA De La Rosa at at 1842. Patient alert at baseline and resting in bed, stable on room air. NS with K+ infusing per orders. Parents at bedside. Call light within reach, all needs met at this time.
--- NOTE | 2023-11-13 18:50 | NUR ---
PATIENT RESTING IN BED WITH TV OFF WITH MOTHER AND FATHER AT BEDSIDE WITH NO ACUTE DISTRESS NOTED. PATIENT ON ROOM AIR. NS WITH 20 KCL INFUSING INTO LEFT FOREARM WITH NO COMPLICATIONS NOTED. PATIENT ALERT AND JAUNDACED. PATIENT DENIES ANY NEEDS AT THIS TIME. PATIENT CARE ASSUMED FROM [facility]. BED IN LOW POSITION WITH WHEELS LOCKED WITH RAILS UP X3 AND CALL LIGHT WITHIN REACH. SEIZURE PRECAUTIONS IN PLACE AND BED ALARM ON.
--- NOTE | 2023-11-13 19:50 | NUR ---
[facility] HERE TO TAKE PATIENT TO [facility]. REPORT GIVEN TO EMS. PACK OF PAPER WORK GIVEN.
[2023-11-13 19:53] VITALS: BP 105/71; PULSE 85; TEMP 98.9
--- NOTE | 2023-11-13 19:59 | NUR ---
MORPHINE GIVEN PER PATIENT AND FATHER REQUEST FOR PAIN MANAGEMENT. PATIENT STATES PAIN LEVEL IS 7.5 ON SCALE OF 0 TO 10. PATIENT TOLERATED WELL. IV PUMP CLEARED OF 3174 MLS.
[2023-11-13 20:00] VITALS: BP_SYST 105
--- NOTE | 2023-11-13 20:02 | NUR ---
[facility] PATIENT TOLERATED WELL. YELLOW GATORAIDE AND APPLE JUICE GIVEN PER PATIENT REQUEST ALONG WITH CELL PHONE AND REHAB OFFICE COORDINATOR. FAMILY TOOK ALL OTHER BELONGINGS HOME.
--- NOTE | 2023-11-13 20:10 | NUR ---
PATIENT LEFT FLOOR BY STRETCHER WITH EMS TO [facility] AT THIS TIME.
[2023-11-13] MEDS ORDERED: rifAXIMin 550 MG TAB PO SCH (21:00)
[2023-11-13] MEDS ORDERED: Lactulose Oral Soln 10 GM/15 ML CUP PO SCH (21:00)
[2023-11-20 14:11] LABS: ANTISMOOTH MUSCLE ANTIBODY 1:40 (<1:20)
== END 2023-11-13 20:10 | disposition short-term general hospital (02) | DRG 433 ==
LOC: COL.ER 17:27 → MEDICAL 21:18
PROVIDERS: Hospitalist; Internal Medicine Gastroenterology; Nurse Practitioner Primary Care; Physician Assistant; ADMIT Internal Medicine
DX: K70.11 Alcoholic hepatitis with ascites (principal); E44.0 Moderate protein-calorie malnutrition; F10.139 Alcohol abuse with withdrawal, unspecified; F17.210 Nicotine dependence, cigarettes, uncomplicated; K76.82 Hepatic encephalopathy; K76.0 Fatty (change of) liver, not elsewhere classified; F41.9 Anxiety disorder, unspecified; Z66 Do not resuscitate; F15.10 Other stimulant abuse, uncomplicated; K70.40 Alcoholic hepatic failure without coma; K76.89 Other specified diseases of liver; E87.6 Hypokalemia; E83.42 Hypomagnesemia; D72.829 Elevated white blood cell count, unspecified; Y90.8 Blood alcohol level of 240 mg/100 ml or more; T38.0X5A Adverse effect of glucocorticoids and synthetic analogues, initial encounter; Z91.014 Allergy to mammalian meats; Z68.20 Body mass index [BMI] 20.0-20.9, adult
CPT/HCPCS: J1650; J2060; J2270; J3360; J3475; J3480; J7030; J7510; Q9967

== ENCOUNTER → 2024-03-29 | Outpatient (CLI) | payer MEDICAID | LOC: COL.RAD 15:57 | DX: K70.30 Alcoholic cirrhosis of liver without ascites (principal) ==